=== PATIENT | female | born 1960 | race Hispanic/Latino ===

== ENCOUNTER → 2017-11-04 | Day surgery (SDC) | payer OTHER ==
[~2017-11-04] VITALS: Ht 157.5 cm; Wt 79.4 kg
[~2017-11-04] MED LIST: CALCIUM600 M3 PO; CLARITIN10 M1 PO; ELMIRON100 M1 PO; LYRICA100 M1 PO; NEXIUM40 M1 PO; PROAIR HFA8.5 GM INH; VITAMIN B-125000 MCG PO; VITAMIN D5000 UNIT PO
--- NOTE | 2017-11-04 12:02 | Operative Report ---
Operative/Inv Procedure Report Surgery Date: 11/04/17 Name of Procedure: Bilateral breast reduction Pre-Operative Diagnosis: Symptomatically breast hypertrophy Post-Operative Diagnosis: Same Estimated Blood Loss: scant (200) Surgeon/[employer] Director: Juventino Joseph MD Anesthesia: general endotracheal tube Operative/Procedure Note Note: Patient was counseled regards the procedure the alternatives the risks and expected outcomes as relates to her request for surgical intervention to treat symptomatic macromastia. No guarantees were given in regards to cup size. She was given a SPS informed consent from the office and she states she has no questions regarding the consent form today. She signed an additional consent after further discussions today. She was marked in the standing position for an inferior pedicle Silva pattern technique. She was brought to the operating placed supine on the table. Venodyne boots are placed general anesthesia was established and intravenous antibiotics were given. Chest was prepped and draped in usual sterile fashion. An inferior pedicle Silva pattern technique was performed on both sides after de-epithelializing a 8 cm pedicle. Resections were carried out superiorly medially and laterally. Patient was put in the sitting position and despite removing similar amounts bilaterally the right side appeared larger and a further skin excision was performed laterally. He was good and the nipples were located in the sitting position. 3 layer closure was carried out of all wounds. Ends dictation
== END ==
LOC: STS 10-29 07:00
DX: N62 Hypertrophy of breast (principal); M54.9 Dorsalgia, unspecified; I10 Essential (primary) hypertension; M32.9 Systemic lupus erythematosus, unspecified; K44.9 Diaphragmatic hernia without obstruction or gangrene
CPT/HCPCS: 36415; J2250; J2405; Q9968